=== PATIENT | female | born 1935 | race Caucasian/White ===

== ENCOUNTER 2017-10-13 18:53 | Inpatient (IN) | payer OTHER ==
[~2017-10-13] VITALS: Ht 157.5 cm; Wt 68.0 kg
--- NOTE | ~2017-10-13 | HC ---
[facility] [place] [address] CONSULTATION Name: ANUP PALACIO Room #: 431-P ADM IN M.R.#: [id number] Admission: 10/13/17 Attend Phys: Cale Umanzor MD Discharge: Date of : 34 Report #: [id number] THIS REPORT FOR: //name// CC: Pablo Umanzor DATE OF SERVICE: 10/15/2017 WOUND CARE CONSULTATION CHIEF COMPLAINT: Cellulitis and abscess of the left heel. HISTORY OF PRESENT ILLNESS: This is an 82-year-old female patient with a history of a previous left foot fracture that has required previous fusion and previous nu placement in her fibula. She has had some scar tissue and required debridement approximately a year ago. Over the past 6 months, however, she has had ongoing drainage from her heel. She states that she often has a yellow foul-smelling material that oozes into her shoes. The area has become increasingly painful and she has developed redness and swelling of her leg and is admitted with cellulitis and has been started empirically on intravenous antibiotic therapy. Cultures revealed no growth so far from the surface area, although no wound or abscess material has been obtained. ALLERGIES: None. PAST MEDICAL HISTORY: Positive for history of arthritis. PAST SURGICAL HISTORY: Previous bilateral total hip arthroplasties and left foot surgery. MEDICATIONS: Include meloxicam and a multivitamin. She is on intravenous cefazolin. FAMILY HISTORY: Noncontributory. SOCIAL HISTORY: Denies alcohol or tobacco use. REVIEW OF SYSTEMS: CONSTITUTIONAL: The patient denies fever, chills or weight loss. NEUROLOGICAL: The patient has focal weakness or tingling. ENT: The patient denies earache, nasal drainage or sore throat. CARDIOVASCULAR: The patient denies chest pain, palpitations or diaphoresis. PULMONARY: The patient denies cough or shortness of breath. GASTROINTESTINAL: The patient denies nausea, vomiting, diarrhea or abdominal pain. ORTHOPEDIC: The patient does complain of pain, swelling and drainage from her [facility] [address] [place] [address] CONSULTATION Name: ANUP PALACIO Room #: [address] [place] [address] IN M.R.#: [id number] Admission: 10/13/17 Attend Phys: Cale Umanzor MD Discharge: Date of : 34 Report #: [id number] left foot. Other systems in a 12-point review of systems are negative. PHYSICAL EXAMINATION: VITAL SIGNS: The patient's vital signs at this time include pulse rate 68, respiratory rate 14, blood pressure 150/78 and temperature 97.8. GENERAL: This is a chronically ill-appearing female patient, who appears to be in minimal distress. HEENT: Head normocephalic. Nose and throat clear. NECK: Supple. LUNGS: Clear. HEART: Regular. ABDOMEN: Soft, bowel sounds present. EXTREMITIES: Demonstrate diminished, but yet palpable distal pulses. Capillary refill is normal. Left foot and ankle demonstrate callus and some fluctuance in the posterior and plantar heel area. This extends into the medial ankle with significant erythema above in the medial ankle and extending up on to the lower leg. NEUROLOGIC: She is alert and oriented and appropriate. I have performed an incision and drainage and debridement of the heel area with a moderate amount of foul-smelling drainage which has been sent for culture and sensitivity. Please see separate procedure note for those details. LABORATORY DATA: Sodium 140, potassium 3.7, chloride 108, CO2 of 25, BUN 14, creatinine 0.7 and glucose of 88. C-reactive protein is 22.5. White blood cell count 6.1 with hemoglobin of 13.5, hematocrit of 40.9 and platelet count 223,000. Sed rate is 10. X-ray of the foot demonstrates previous fusion of the left mid and hind foot. There is an old distal fibular fracture with nu in place. No findings for osteomyelitis were identified. CT scan of the foot demonstrates postoperative changes from remote hind foot fusion, generalized reticular subcutaneous fat edema within the foot due to cellulitis. No discrete abscess or CT evidence of acute osteomyelitis. CLINICAL IMPRESSION: 1. Cellulitis of the left foot and ankle. 2. Abscess of the left foot, status post incision and drainage. Cultures were sent and are pending. RECOMMENDATIONS: At this point in time, we will recommend topical gentamicin ointment and gauze dressing, to be changed daily. We will await culture results. I have discussed the findings with Dr. Melendrez, who will direct appropriate antibiotic therapy. We will consider aggressive nutritional support to benefit wound healing. Hopefully, this area will go on to close without any additional interventions. All questions have been answered. [address] [address] CONSULTATION Name: ANUP PALACIO Room #: 431-P ADM IN M.R.#: [id number] Admission: 10/13/17 Attend Phys: Cale Umanzor MD Discharge: Date of : 34 Report #: [id number] I appreciate being asked to see her in consultation. <ELECTRONICALLY SIGNED> By: Sergei Nogueira MD 10/16/17 0849 [id number] Sergei Nogueira MD /nt
--- NOTE | ~2017-10-13 | D ---
[facility] [place] [address] [place] [address] DISCHARGE SUMMARY Name: ANUP PALACIO Room #: 431-P ADM IN M.R.#: [id number] Admission: 10/13/17 Attend Phys: Cale Umanzor MD Discharge: Date of : 34 Report #: [id number] THIS REPORT FOR: //name// CC: Pablo Umanzor DATE OF SERVICE: 10/19/2017 HISTORY OF PRESENT ILLNESS: The patient is an 82-year-old female with no major health problems, who was admitted to the hospital for left foot infection. Please refer to the admission H and P for details. HOSPITALIZATION COURSE: The patient was hospitalized for left foot infection. Initially osteomyelitis was suspected, but that was not confirmed on MRI. The patient had drainage from the left heel. Cultures grew Staphylococcus aureus, as well as beta strep group C. Initially, the patient was treated with Zosyn and vancomycin, and later antibiotics were changed to Zyvox. The patient has done well. Her hospital stay was uneventful. She will be discharged home on Zyvox for 10 more days, with close outpatient followup. DISCHARGE DIAGNOSIS: Left heel infection and abscess secondary to methicillin-resistant Staphylococcus aureus and strep group C. Treated with Zyvox for 10 more days. SECONDARY DIAGNOSES: Arthritis, status post bilateral hip replacements, left foot fracture, status post surgery. DISPOSITION: The patient is discharged home. DISCHARGE MEDICATIONS: Please refer to the medication reconciliation list. As noted, the patient will be discharged home on Zyvox for 10 days. FOLLOWUP PLAN: Follow up in Infectious Disease Clinic within 1 week. By: [id number] Josseline Castro MD /nt
--- NOTE | ~2017-10-13 | HC ---
[facility] [place] [address] CONSULTATION Name: ANUP PALACIO Room #: 431- ADM IN M.R.#: [id number] Admission: 10/13/17 Attend Phys: Cale Umanzor MD Discharge: Date of : 34 Report #: [id number] THIS REPORT FOR: //name// CC: Pablo Umanzor REASON FOR CONSULTATION: I was asked to evaluate concerning left foot infection. HISTORY OF PRESENT ILLNESS: The patient is an 82-year-old, approximately 3 years ago had a left foot fracture that required fusion of the mid foot and hind foot along with a nu placed in her fibula. Initially did reasonably well, although continued to have pain in the foot that was treated with Tylenol. She had increased scar tissue that required debridement approximately a year ago. Over the last 6 months, she has had intermittent drainage from her heel. Past week she has had purulent drainage along with increased pain and low grade fever. She did not document her temperatures. Mild chills and sweats. No pain in her hips or her knees. No reported trauma. ALLERGIES: None known. PAST MEDICAL HISTORY: Degenerative arthritis, bilateral total hip arthroplasties and left foot surgery. MEDICATIONS: Meloxicam and multivitamin. Now on vancomycin. FAMILY HISTORY: Noncontributory. SOCIAL HISTORY: Nonsmoker, no significant alcohol intake. REVIEW OF SYSTEMS: No cardiopulmonary, GI or complaints. PHYSICAL EXAMINATION: VITAL SIGNS: Afebrile, hemodynamically stable. GENERAL: She is alert and cooperative and pleasant, no acute distress. HEENT: Unremarkable. NECK: Supple. LUNGS: Clear. HEART: Regular, without murmur. ABDOMEN: Soft and nontender. EXTREMITIES: Pulses in the left lower extremity were normal in the femoral, popliteal, and posterior tibia. She had 1+ in the dorsalis pedis. There is erythema involving her hindfoot with fluctuant area over the posterior heel region and erythema that extended up the medial ankle, which was erythematous, indurated and tender. She had limited range of motion in the ankle. Capillary refill and sensation in the toes was adequate. [facility] [address] [place] [address] CONSULTATION Name: ANUP PALACIO Room #: 431-P [facility] IN M.R.#: [id number] Admission: 10/13/17 Attend Phys: Cale Umanzor MD Discharge: Date of : 34 Report #: [id number] LABORATORY STUDIES: Sodium 140, potassium 3.7, bicarbonate 25, creatinine 0.7, hemoglobin 13.5, platelet count 223,000, white count 6.8. CRP 22.5, lactate 0.7. Blood cultures negative today. X-ray, left mid foot and hindfoot fusion nu in the distal femur, osteopenia, no evidence of osteomyelitis. IMPRESSION: An 82-year-old with left mid foot and hind foot fusion, now with recurrent drainage. I am concerned about deep tissue infection and possibly involving hardware. RECOMMENDATIONS: I would recommend obtaining further imaging studies. Further imaging with MRI scan. Check sedimentation rate. It is noted that her CRP was elevated at 22. Have orthopedic surgery evaluate. Given the previous x-rays we may be dealing with a posterior soft tissue infection and not necessarily mid foot infection of the hardware. It appears that most of her hardware is in the mid foot and hindfoot more anteriorly. We will make further decisions after cultures have been obtained. <ELECTRONICALLY SIGNED> By: Trev Melendrez MD 10/15/17 0839 [id number] Trev Melendrez MD /nt
--- NOTE | ~2017-10-13 | P ---
[facility] [place] [address] [place] [address] PROCEDURE REPORT Name: ANUP PALACIO Room #: 431-P ADM IN M.R.#: [id number] Admission: 10/13/17 Attend Phys: Cale Umanzor MD Discharge: Date of : 34 Report #: [id number] THIS REPORT FOR: //name// CC: Pablo Umanzor DATE OF SERVICE: 10/15/2017 PRE-PROCEDURE DIAGNOSIS: Abscess of left heel and foot. POST-PROCEDURE DIAGNOSIS: Abscess of left heel and foot. PROCEDURE PERFORMED: Incision and debridement and drainage of left heel abscess. FINDINGS: None. COMPLICATIONS: None. ESTIMATED BLOOD LOSS: None. HISTORY OF PRESENT ILLNESS: This is an 82-year-old female patient with left foot infection with cellulitis involving the foot and ankle and lower leg. She has been on intravenous antibiotics. Preliminary cultures of the surface have shown no growth. She was seen by Orthopedics and Infectious Disease. I have been asked by Infectious Disease to obtain a culture from the heel area. DESCRIPTION OF PROCEDURE: The left heel area was prepped and draped in the usual sterile fashion after obtaining verbal consent from the patient. A #15 bladed scalpel and tissue forceps were utilized in the incision to a large area of callus and erythema and a bit of fluctuance was made. A moderate amount of callus was debrided down to the base of healthy tissue. A moderate amount of foul-smelling purulent material was released from this area. There was underlying ulceration that was noted, all of which appeared to be superficial. No foreign bodies or deep tracts or exposure of deeper structures was identified. The patient tolerated the procedure well. <ELECTRONICALLY SIGNED> By: Sergei Nogueira MD 10/16/17 0849 [id number] Sergei Nogueira MD /nt
[2017-10-13 19:07] VITALS: BP 184/111
[2017-10-13] MEDS ORDERED: UNICOMPLEX M TA1 TA1 PO (19:22)
[2017-10-13] MEDS ORDERED: MOBIC15 MG PO (19:22)
[2017-10-13 19:56] LABS: ABSOLUTE NEUTROPHILS 5.3 thou/uL (1.4-8.2); BASOPHILS 0.6 % (0.0-2.0); EOSINOPHILS 3.1 % (0.0-3.0); HEMATOCRIT 43.3 % (37.0-47.0); HEMOGLOBIN 14.4 gm/dL (12.0-15.0); LYMPHOCYTES 24.8 % (24.0-44.0); MANUAL DIFF NO; MCH 31.8 pg (26.0-34.0); MCHC 33.2 g/dL (28.0-37.0); MCV 95.7 fL (80.0-100.0); MONOCYTES 7.2 % (1.0-8.0); PLATELET COUNT 241 thou/uL (150-400); POLYS 64.3 % (36.0-66.0); RBC 4.53 mil/uL (4.20-5.00); RDW 13.3 % (10.5-14.5); WBC 8.2 thou/uL (4.0-11.0)
[2017-10-13 20:00] LABS: CALCIUM 9.6 mg/dL (8.5-10.1); CREATININE 0.9 mg/dL (0.6-1.0); POTASSIUM 3.8 mmol/L (3.5-5.1)
[2017-10-13 20:47] VITALS: BP 170/101
[2017-10-13 21:05] VITALS: BP 179/101
[2017-10-13 21:10] VITALS: BP 166/83
[2017-10-13 21:41] VITALS: BP 154/85
[2017-10-14 03:37] VITALS: BP 120/58
[2017-10-14 05:51] LABS: HEMATOCRIT 40.9 % (37.0-47.0); HEMOGLOBIN 13.5 gm/dL (12.0-15.0); MCH 31.6 pg (26.0-34.0); MCV 95.5 fL (80.0-100.0); RBC 4.28 mil/uL (4.20-5.00); RDW 13.6 % (10.5-14.5); WBC 6.8 thou/uL (4.0-11.0)
[2017-10-14 06:09] LABS: CREATININE 0.7 mg/dL (0.6-1.0); POTASSIUM 3.7 mmol/L (3.5-5.1)
[2017-10-14 08:30] VITALS: BP 157/84
[2017-10-14 15:50] VITALS: BP 154/83
[2017-10-14 20:23] VITALS: BP 158/83
[2017-10-15 04:15] VITALS: BP 131/74
[2017-10-15 07:45] VITALS: BP 150/78
[2017-10-15 20:00] VITALS: BP 158/83
[2017-10-16 04:00] VITALS: BP 132/66
[2017-10-16 08:21] VITALS: BP 138/82
[2017-10-16 17:05] VITALS: BP 142/81
[2017-10-16 20:00] VITALS: BP 121/56
[2017-10-17 04:09] VITALS: BP 124/61
[2017-10-17 08:00] VITALS: BP 132/82
[2017-10-17 17:30] VITALS: BP 114/53
[2017-10-17 20:00] VITALS: BP 122/51
[2017-10-18 03:59] LABS: ABSOLUTE NEUTROPHILS 4.1 thou/uL (1.4-8.2); BASOPHILS 0.6 % (0.0-2.0); EOSINOPHILS 7.7 % (0.0-3.0); HEMATOCRIT 41.3 % (37.0-47.0); HEMOGLOBIN 13.9 gm/dL (12.0-15.0); MANUAL DIFF NO; MCH 32.2 pg (26.0-34.0); MCHC 33.5 g/dL (28.0-37.0); MCV 95.9 fL (80.0-100.0); MONOCYTES 6.5 % (1.0-8.0); PLATELET COUNT 239 thou/uL (150-400); POLYS 55.2 % (36.0-66.0); RBC 4.31 mil/uL (4.20-5.00); RDW 13.4 % (10.5-14.5); WBC 7.4 thou/uL (4.0-11.0)
[2017-10-18 04:00] VITALS: BP 131/64
[2017-10-18 04:15] LABS: ALBUMIN 3.3 g/dL (3.4-5.0); CALCIUM 8.7 mg/dL (8.5-10.1); POTASSIUM 4.1 mmol/L (3.5-5.1); TOTAL BILIRUBIN 0.4 mg/dL (<0.1-1.0); TOTAL PROTEIN 6.5 g/dL (6.4-8.2)
[2017-10-18 08:06] VITALS: BP 153/90
[2017-10-18] MEDS ORDERED: LINEZOLID600 MG PO (14:12)
[2017-10-18 16:10] VITALS: BP 150/80
[2017-10-18 19:25] VITALS: BP 133/76
[2017-10-19 03:07] VITALS: BP 114/59
[2017-10-19 07:01] LABS: CALCIUM 9.5 mg/dL (8.5-10.1); CREATININE 0.8 mg/dL (0.6-1.0)
[2017-10-19 08:13] VITALS: BP 112/67
[2017-10-19 10:21] VITALS: BP 112/67
[2017-10-19] MEDS ORDERED: LINEZOLID600 MG PO (13:11)
== END 2017-10-19 14:45 | disposition home or self-care (01) | DRG 571 ==
LOC: ER 18:53 → EROBS 20:34 → EDBD 20:34 → 4E 20:34
PROVIDERS: Emergency Medicine; Internal Medicine Endocrinology, Diabetes & Metabolism; Registered Nurse
PROC: 0JBR0ZZ Excision of Left Foot Subcutaneous Tissue and Fascia, Open Approach (ICD-10-PCS; principal; 2017-10-15)
DX: L02.612 Cutaneous abscess of left foot (principal); L03.116 Cellulitis of left lower limb; Z96.643 Presence of artificial hip joint, bilateral; M19.90 Unspecified osteoarthritis, unspecified site; B95.62 Methicillin resistant Staphylococcus aureus infection as the cause of diseases classified elsewhere; I10 Essential (primary) hypertension; Z79.899 Other long term (current) drug therapy; Z82.3 Family history of stroke; Z23 Encounter for immunization; Z28.21 Immunization not carried out because of patient refusal
CPT/HCPCS: 10084

== ENCOUNTER → 2017-11-19 | Outpatient (CLI) | payer OTHER ==
[~2017-11-19] MED LIST: LINEZOLID600 MG PO; MOBIC15 MG PO; UNICOMPLEX M TA1 TA1 PO
== END ==
LOC: SEN 08:27
DX: M00.872 Arthritis due to other bacteria, left ankle and foot (principal); K43.9 Ventral hernia without obstruction or gangrene; K30 Functional dyspepsia; F32.9 Major depressive disorder, single episode, unspecified

== ENCOUNTER → 2019-06-16 | Outpatient (CLI) | payer OTHER | LOC: MRI 07:13 | DX: M19.172 Post-traumatic osteoarthritis, left ankle and foot (principal) ==

== ENCOUNTER → 2020-12-14 | Outpatient (CLI) | payer OTHER | LOC: LAB 09:00 | PROVIDERS: ATTEND Internal Medicine | DX: R05 Cough (principal); Z20.822 Contact with and (suspected) exposure to COVID-19 ==